=== PATIENT | female | born 1990 | race Asian ===

== ENCOUNTER 2022-01-03 12:42 | Emergency (ER) | payer OTHER ==
[~2022-01-03] VITALS: Ht 154.9 cm; Wt 55.0 kg
[2022-01-03 13:45] VITALS: BP 131/91
--- NOTE | 2022-01-03 14:16 | PHYS DOC ---
Past Medical History Past Medical History: No Pertinent History Past Surgical History: No Surgical History Smoking Status: Never Smoker Alcohol Use: None General Adult EDM: Chief Complaint: UPPER EXTREMITY PAIN HPI: HPI: Patient is a 31 year old female who presents with right-sided wrist and forearm pain. Patient describes her pain as "burning" extending from her wrist proximally towards her elbow and distally towards her middle finger. She states that she works at a [employer] and works with her hands frequently. They do stretches at work to prevent injury. Patient denies any trauma or injury to the areas of pain. She states her right upper extremity "looks normal, but it hurts." Patient report the pain is worse at night and frequently wakes her up. She is right-hand dominant. Patient has no other complaints at this time. Review of Systems: Review of Systems: Constitutional: Denies fever, chills or generalized weakness Eyes: Denies change in visual acuity, visual field deficits or discharge HENT: Denies ear pain, nasal congestion or sore throat Respiratory: Denies cough or shortness of breath Cardiovascular: Denies chest pain, palpitations or edema GI: Denies abdominal pain, nausea, vomiting, bloody stools or diarrhea : Denies dysuria or hematuria Musculoskeletal: See HPI Integument: Denies rash or other skin lesion Neurologic: Denies headache, focal weakness or sensory changes Heart Score: C/O Chest Pain: No Allergies: Allergies: Allergies Coded Allergies Type Severity Reaction Last Updated Verified No Known Drug Allergies 01/03/22 No Physical Exam: PE: Constitutional: Well developed, well nourished, no acute distress, non-toxic appearance. HENT: Normocephalic, atraumatic, bilateral external ears normal. Eyes: EOMI, conjunctiva normal, no discharge. Neck: Normal range of motion, no stridor. Skin: Warm, dry, no erythema, no rash, no abrasions, no ecchymosis no lacerations. Extremities: No tenderness, no cyanosis, no clubbing, active and passive ROM intact, no edema, positive Phalen's sign in right hand, positive Tinel's sign on the right wrist extending upward to the elbow. Neurologic: Alert and oriented x4, normal motor function, normal sensory function, no focal deficits noted. Current Patient Data: Vital Signs: Vital Signs Date Time Temp Pulse Resp B/P (MAP) Pulse Ox O2 Delivery O2 Flow Rate FiO2 01/03/22 13:45 98.0 92 14 131/91 (104) 98 Room Air 98.0 Course & Med Decision Making: Course & Med Decision Making Pertinent Labs and Imaging studies reviewed. (See chart for details) Patient is a 31-year-old female who is presenting with classic symptoms of carpal tunnel syndrome. Patient was given a wrist splint and instructed to wear it while at work and while sleeping especially. She was advised to contact HR at her place of employment regarding work-related condition for further evaluation and treatment. I provided her with contact information for orthopedics as backup follow-up. Patient questions were answered. She understands and is agreeable to discharge plan. Patient is not [place] speaking. Her family member at bedside aided in translation for history, physical exam, findings and follow-up. Domingo Disclaimer: Domingo Disclaimer: This electronic medical record was generated, in whole or in part, using a voice recognition dictation system. Departure Departure Impression: Primary Impression: Right wrist pain Additional Impression: Work-related condition Disposition: 01 HOME / SELF CARE / HOMELESS Condition: STABLE Referrals: NO PCP (PCP) DANIEL LLOYD Jr. DO Patient Instructions: Carpal Tunnel Syndrome, [id number] Additional Instructions: PLEASE CONTACT YOUR [employer] [facility]PART[facility] FIRST REGARDING NEXT STEPS. EMERGENCY DEPARTMENT GENERAL DISCHARGE INSTRUCTIONS Thank you for coming to [facility] Emergency Department (ED) today and trusting us with you care. We trust that you had a positive experience in our Emergency Department. If you wish to speak to the department management, you may call the director at . YOUR FOLLOW UP INSTRUCTIONS ARE FOLLOWS: 1. Follow up with your primary care doctor. If you do not have a primary doctor, please ask for a resource list of physicians or clinics that may be able to assist you with follow up care. 2. The emergency provider has interpreted your imaging studies, if any were ordered. The radiology electronic imaging system operator also reviewed them. If there is a change in the findings, you will be notified in 48 hours when at all possible. 3. If a lab test or culture has been done, your results will be reviewed and you will be notified if you need a change in treatment. 4. Follow instructions verbalized to you and refer to the printouts if needed. ADDITIONAL INSTRUCTIONS AND INFORMATION: 1. Your care today has been supervised by a physician who is specially trained in emergency care. Many problems require more than one evaluation for a complete diagnosis and treatment. We recommend that you schedule your follow up appointment as recommended to ensure complete treatment of you illness or injury . If you are unable to obtain follow up care and continue to have a problem, or if your condition worsens, we recommend that you return to the ED. 2. We are not able to safely determine your condition over the phone nor are we able to give sound medical advice over the phone. For these safety reasons, if you call for medical advice we will ask you to come to the ED for further e valuation. 3. If you have any questions regarding these discharge instructions please call the ED at . SAFETY INFORMATION: In the interest of safety, wellness, and injury prevention; we encourage you to wear your seat belt, if you smoke; quite smoking, and we encourage family to use a protective helmet for bicycling and other sporting events that present an increased risk for head injury. IF YOUR SYMPTOMS WORSEN OR NEW SYMPTOMS DEVELOP, OR YOU HAVE CONCERNS ABOUT YOUR CONDITION; OR IF YOUR CONDITION WORSENS WHILE YOU ARE WAITING FOR YOUR FOLLOW UP APPOINTMENT; EITHER CONTACT YOUR PRIMARY CARE DOCTOR, THE PHYSICIAN WHOSE NAME AND NUMBER YOU WERE GIVEN, OR RETURN TO THE ED IMMEDIATELY. ESTRELLITA BORGES Jan 03, 2022 14:16
== END 2022-01-03 14:25 | disposition home or self-care (01) ==
LOC: ER 12:42
DX: M25.531 Pain in right wrist (principal); M79.631 Pain in right forearm; Y99.0 Civilian activity done for income or pay
CPT/HCPCS: 29125; 99283